=== PATIENT | female | born 1985 | race African-American/Black ===

== ENCOUNTER 2024-10-27 03:06 | Emergency (ER) | payer MEDICAID, OTHER ==
[~2024-10-27] VITALS: Ht 162.6 cm; Wt 88.0 kg
[2024-10-27 03:37] LABS: BASOPHILS # (AUTO) 0.1 K/UL (0.0-0.2); BASOPHILS % (AUTO) 0.8 % (0.0-2.0); HEMATOCRIT 40.6 % (31.2-41.9); HEMOGLOBIN 12.4 g/dL (10.9-14.3); LYMPHOCYTES # (AUTO) 1.2 K/uL (0.8-4.8); LYMPHOCYTES % (AUTO) 10.5 % (20.5-51.5); MEAN CORPUSCULAR HEMOGLOBIN 23.8 uug (24.7-32.8); MEAN CORPUSCULAR HGB CONC 31 g/dL (32.3-35.6); MEAN CORPUSCULAR VOLUME 77.8 fL (75.5-95.3); MONOCYTES # (AUTO) 0.8 K/uL (0.1-1.30); MONOCYTES % (AUTO) 7.3 % (0.0-11.0); NEUTROPHILS # (AUTO) 9.4 K/uL (1.8-8.9); NEUTROPHILS % (AUTO) 81.4 % (38.5-71.5); PLATELET COUNT (AUTO) 263 K/uL (179-408); RED BLOOD CELL COUNT(AUTO) 5.22 MIL/uL (3.63-4.92); RED CELL DISTRIBUTION WIDTH 15.6 % (12.3-17.7); WHITE BLOOD COUNT (AUTO) 11.5 K/uL (3.8-11.8)
[2024-10-27 04:09] LABS: CALCIUM 9.3 mg/dL (8.5-10.1); CARBON DIOXIDE 26 mmol/L (21-32); CHLORIDE 96 mmol/L (98-107); CREATININE 1.3 mg/dL (0.6-1.3); POTASSIUM 4.7 mmol/L (3.5-5.1); SODIUM SERUM 133 mmol/L (136-145); UREA NITROGEN, BLOOD 12 mg/dL (7-18)
[2024-10-27 04:15] LABS: GLUCOSE 466 mg/dL (74-106)
[2024-10-27] MEDS ORDERED: INSULIN REGULAR, HUMAN 1000 UNIT/10 ML VIAL ONE (04:39)
[2024-10-27] MEDS: INSULIN REGULAR, HUMAN 1000 UNIT/10 ML VIAL IV ONE (04:41)
[2024-10-27] MEDS: IV NS 1000 ML 1,000 ML IV ONE (04:48)
[2024-10-27] MEDS ORDERED: ACYC-108 PO (05:50)
[2024-10-27] MEDS ORDERED: PRED20TA PO (05:50)
[2024-10-27] MEDS ORDERED: METF-440 PO (05:50)
[2024-10-27] MEDS ORDERED: CLONIDINE HCL 0.1 MG TABLET ONE (06:13)
[2024-10-27] MEDS: CLONIDINE HCL 0.1 MG TABLET PO ONE (06:22)
[2024-10-27 07:35] VITALS: BP 159/73; TEMP 208; O2SAT 99
== END 2024-10-27 07:37 | disposition home or self-care (01) ==
LOC: ER 03:21
DX: G51.0 Bell's palsy (principal); R73.9 Hyperglycemia, unspecified; R51.9 Headache, unspecified; I10 Essential (primary) hypertension; F17.210 Nicotine dependence, cigarettes, uncomplicated; F17.290 Nicotine dependence, other tobacco product, uncomplicated
CPT/HCPCS: 36415; 70450; 71045; 84484; 85025; A4606; A4663; J1815; J7040